=== PATIENT | male | born 1965 | race Caucasian/White ===

== ENCOUNTER 2016-10-06 20:28 | Inpatient (IN) | payer OTHER ==
[~2016-10-06] VITALS: Ht 175.3 cm; Wt 94.0 kg
[2016-10-06] MEDS ORDERED: LIDOCAINE HCL 1% 50 ML VIAL INFIL ONE (20:45)
[2016-10-06] MEDS ORDERED: BUPIVACAINE HCL PF 0.5% 10 ML VIAL INFIL ONE (20:45)
[2016-10-06 20:47] VITALS: BP 147/76; PULSE 99; RESP 18; TEMP 98.1; O2SAT 99
--- NOTE | 2016-10-06 20:48 | PD ---
HPI Chief Complaint: Injury Time Seen by Provider: 20:48 Travel History International Travel<30 days: No Contact w/Intl Traveler<30days: No History of Present Illness HPI 51-year-old male with a history of IV drug use presents to the emergency department for evaluation of laceration of left hand second and third fingers that occurred about 20 minutes prior to arrival. The patient was apparently using a circular saw to cut a door when he accidentally cut his left hand second and third fingers. States that he is unsure how this happened exactly. States that he has pain and limited range of motion in the second and third fingers. Denies any numbness or tingling. Patient denies any medical conditions. Denies taking any prescribed medications. He admits to cocaine use and IV heroin use. States that he last used cocaine yesterday and heroin earlier this month. No other complaints. [facility] Past Medical History Medical History: Denies Significant Hx Social History Alcohol Use: Yes Tobacco Use: Yes Substance Use: Yes Allergies-Medications (Allergen,Severity, Reaction): Coded Allergies: No Known Allergies (Unverified , 10/06/16) Reported Meds & Prescriptions Reported Meds & Active Scripts Active No Active Prescriptions or Reported Medications Review of Systems Except as stated in HPI: all other systems reviewed are Neg Physical Exam Narrative GENERAL: Well-nourished and well-developed male patient in no acute distress who is nontoxic appearing. SKIN: Warm and dry. HEAD: Normocephalic and atraumatic. EYES: No injection, drainage, or hyphema noted. PERRLA. EOMI. ENT: No nasal drainage noted. Oropharynx is clear. NECK: Supple and the trachea is midline. CARDIOVASCULAR: Regular rate and rhythm. RESPIRATORY: Breath sounds are equal bilaterally with no accessory muscle use, wheezing, rhonchi, or crackles. GASTROINTESTINAL: Abdomen is soft, non-tender, and nondistended. EXTREMITY: Right hand dominant. Left hand with complex laceration that wraps around the third finger and is a partial amputation at the DIP joint. Left hand second finger laceration overlying the PIP joint. 2 point discrimination is intact on the second finger. 2 point discrimination is intact on the third finger with the exception of the radial distal aspect. Capillary refill is within normal limits. Decreased range of motion in second and third fingers. Normal opposition of thumb. MUSCULOSKELETAL: No obvious deformities, swelling, cyanosis, or ecchymosis is present throughout the upper and lower extremities. Patient has full range of motion without any signs of neurovascular compromise. NEUROLOGICAL: Awake, alert, and oriented. Normal speech and gait. Cranial nerves are grossly intact. Data Data Last Documented VS Vital Signs Date Time Temp Pulse Resp B/P Pulse Ox O2 Delivery O2 Flow Rate FiO2 10/06/16 20:55 99 18 97 10/06/16 20:47 98.1 147/76 Orders Hand, Complete (Ufm2htn) (10/06/16 20:38) Bupivacaine Pf 0.5% Inj (Marcaine Pf 0.5 (10/06/16 20:45) Lidocaine 1% Inj (50 Ml) (Xylocaine 1% I (10/06/16 20:45) Complete Blood Count With Diff (10/06/16 21:37) Comprehensive Metabolic Panel (10/06/16 21:37) Prothrombin Time / Inr (Pt) (10/06/16 21:37) Act Partial Throm Time (Ptt) (10/06/16 21:37) Iv Access Insert/Monitor (10/06/16 21:37) Ecg Monitoring (10/06/16 21:37) Oximetry (10/06/16 21:37) NPO (10/06/16 21:37) Sodium Chloride 0.9% Flush (Ns Flush) (10/06/16 21:45) Splint Or Brace Apply/Monitor (10/06/16 21:40) Tetanus/Diphtheria Tox Adult (Tetanus/Di (10/06/16 21:45) Cefazolin 2 Gm Premix (Ancef 2 Gm Premix (10/06/16 21:45) Diet Npo (10/07/16 Breakfast) Consent (10/06/16 21:44) Consult Hand Surgery (10/06/16 ) Admit Order (Ed Use Only) (10/06/16 22:00) Labs Laboratory Tests Test 10/06/16 21:44 White Blood Count 9.1 TH/MM3 Red Blood Count 4.16 MIL/MM3 Hemoglobin 12.3 GM/DL Hematocrit 35.0 % Mean Corpuscular Volume 84.2 FL Mean Corpuscular Hemoglobin 29.7 PG Mean Corpuscular Hemoglobin 35.3 % Concent Red Cell Distribution Width 13.1 % Platelet Count 252 TH/MM3 Mean Platelet Volume 8.4 FL Neutrophils (%) (Auto) 50.0 % Lymphocytes (%) (Auto) 31.2 % Monocytes (%) (Auto) 11.4 % Eosinophils (%) (Auto) 6.9 % Basophils (%) (Auto) 0.5 % Neutrophils # (Auto) 4.5 TH/MM3 Lymphocytes # (Auto) 2.8 TH/MM3 Monocytes # (Auto) 1.0 TH/MM3 Eosinophils # (Auto) 0.6 TH/MM3 Basophils # (Auto) 0.0 TH/MM3 CBC Comment DIFF FINAL Differential Comment Prothrombin Time 10.6 SEC Prothromb Time International 1.0 RATIO Ratio Activated Partial 27.3 SEC Thromboplast Time MDM Medical Decision Making Medical Screen Exam Complete: Yes Emergency Medical Condition: Yes Differential Diagnosis Open fracture versus partial amputation versus laceration versus tendon injury Narrative Course 51-year-old male is brought to the emergency department for evaluation of lacerations to left hand second and third fingers secondary to a circular saw. Patient is afebrile, vital signs are stable. There is currently no vascular compromise as the patient has adequate blood flow to both fingers. He has some decreased sensation to the third finger. X-ray shows comminuted fractures involving the distal second proximal phalanx that extends into the proximal interphalangeal joint. There is a triangular fragment measuring 5 x 5 mm with multiple smaller fragments. There is also a comminuted fracture deformity involving the distal third middle phalanx and proximal aspect of the distal phalanx. The distal phalanx is dislocated anteriorly and radially approximately 6 mm. There is extensive soft tissue swelling. A digital block was performed for comfort and to allow for mild irrigation. Patient will be admitted to medicine service with hand surgery consultation. Physician Communication Physician Communication I spoke with Dr. Tran who requests patient have gentle irrigation and be placed in a splint. She also requests patient be admitted to medicine service. I spoke with Dr. Qureshi [facility] who agrees to admit the patient to her service. 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
--- NOTE | 2016-10-06 21:34 | RADRPT ---
EXAM DATE/TIME: 10/06/2016 20:59 [place] COMPARISON: No previous studies available for comparison. INDICATIONS : Pain, laceration left hand, cut with hand saw MEDICAL HISTORY : None. SURGICAL HISTORY : None. ENCOUNTER: Initial ACUITY: 1 day PAIN SCORE: 10/10 LOCATION: Left Hand FINDINGS: AP, lateral and oblique views of the left hand were obtained and demonstrate an oblique comminuted fr acture involving the distal aspect of the second proximal phalanx. This extends into the proximal int erphalangeal joint. There is a triangular fragment measuring approximately 5 x 5 mm. Multiple smaller fragments. There is also a comminuted fracture deformity involving the distal third middle phalanx a nd proximal aspect of the distal phalanx. The distal phalanx is dislocated anteriorly and radially ap proximately 6 mm. There is extensive soft tissue swelling. CONCLUSION: Comminuted fractures involving the second and third digits as described. Martínez Gavin MD on October 06, 2016 at 21:30 Board Certified Radiologist. This report was verified electronically.
[2016-10-06] MEDS ORDERED: ceFAZolin 2 GM PREMIX 50 ML IV ONE (21:45)
[2016-10-06] MEDS ORDERED: SODIUM CHLORIDE 0.9% FLUSH 10 ML FLUSH IV FLUSH PRN ×2 (21:45→22:45)
[2016-10-06] MEDS ORDERED: TETANUS/DIPHTHERIA TOXOID ADULT 0.5 ML VIAL IM ONE (21:45)
[2016-10-06 21:53] LABS: AUTOMATED NEUTROPHIL # 4.5 TH/MM3 (1.8-7.7); BASOPHIL % 0.5 % (0.0-2.0); EOSINOPHIL # 0.6 TH/MM3 (0-0.4); EOSINOPHIL % 6.9 % (0.0-4.0); HEMO FLAGS DIFF FINAL; LYMPH % 31.2 % (9.0-44.0); LYMPHOCYTE # 2.8 TH/MM3 (1.0-4.8); MEAN CELL VOLUME 84.2 FL (80.0-100.0); MEAN CORPUSCULAR HEMOGLOBIN 29.7 PG (27.0-34.0); MEAN CORPUSCULAR HGB CONC 35.3 % (32.0-36.0); MONO % 11.4 % (0.0-8.0); PLATELET COUNT 252 TH/MM3 (150-450); RED BLOOD COUNT 4.16 MIL/MM3 (4.50-5.90); RED CELL DISTRIBUTION WIDTH 13.1 % (11.6-17.2); WHITE BLOOD COUNT 9.1 TH/MM3 (4.0-11.0)
[2016-10-06 22:08] LABS: APTT (PATIENT) 27.3 SEC (24.3-30.1); PROTHROMBIN TIME - PATIENT 10.6 SEC (9.8-11.6)
[2016-10-06 22:20] LABS: ANION GAP 6 MEQ/L (5-15); AST (GOT) 26 U/L (15-37); BICARBONATE 28.8 MEQ/L (21.0-32.0); BLOOD UREA NITROGEN 18 MG/DL (7-18); CHLORIDE 103 MEQ/L (98-107); GLOMERULAR FILTRATION RATE 51 ML/MIN (>89); POTASSIUM 3.5 MEQ/L (3.5-5.1); SODIUM (NA) 138 MEQ/L (136-145)
[2016-10-06 22:21] LABS: ALT (GPT) 32 U/L (12-78)
[2016-10-06 22:24] LABS: ALKALINE PHOSPHATASE 84 U/L (45-117); TOTAL BILIRUBIN ADULT 0.6 MG/DL (0.2-1.0)
[2016-10-06] MEDS ORDERED: NALOXONE HCL 0.4 MG/ML AMP IV PRN (22:45)
[2016-10-06 22:51] VITALS: O2SAT 100
[2016-10-06 23:32] VITALS: BP 140/70; PULSE 98; RESP 18; TEMP 98.1; O2SAT 100
[2016-10-07] VITALS (8 sets, daily range): BP systolic 117–158; BP diastolic 76–98; PULSE 73–113; RESP 18–20; TEMP 96–98.6; O2SAT 98–100
[2016-10-07] MEDS ORDERED: SODIUM CHLORID 0.9% 500 ML IV PRN (00:15)
[2016-10-07] MEDS ORDERED: INSULIN HUMAN REGULAR 1,000 UNITS/10 ML VIAL SQ PRN (00:15)
[2016-10-07] MEDS ORDERED: METOPROLOL TARTRATE 25 MG TAB PO PRN (00:15)
[2016-10-07] MEDS ORDERED: CHLORHEXIDINE GLUCONATE 2 % 1 PACK (2 CLOTHS) TOPICAL PRN (00:15)
[2016-10-07] MEDS ORDERED: POVIDONE IODINE 5% (ANTISEPSIS KIT) 4 APPLICATIONS EACH NARE PRN (00:15)
[2016-10-07] MEDS ORDERED: LACTATED RINGER'S 1000 ML IV PRN (00:15)
[2016-10-07] MEDS: MORPHINE SULFATE 8 MG/ML INJ IV PUSH PRN ×4 (04:52→14:09)
[2016-10-07] MEDS: ceFAZolin 2 GM PREMIX 50 ML IV SCH ×3 (05:11→22:04)
[2016-10-07] MEDS: SODIUM CHLOR 0.9% 1000 ML INJ 1,000 ML IV SCH ×2 (06:01→14:11)
[2016-10-07] MEDS ORDERED: ONDANSETRON HCL 4 MG/2 ML VIAL IVP PRN (06:15)
[2016-10-07] MEDS ORDERED: SENNOSIDES 8.6 MG TAB PO PRN (06:15)
[2016-10-07] MEDS ORDERED: LACTULOSE SYRUP 20 GM/30 ML CUP PO PRN (06:15)
[2016-10-07] MEDS ORDERED: MORPHINE SULFATE 8 MG/ML INJ IV PUSH PRN (06:15)
--- NOTE | 2016-10-07 06:52 | HHI.HP ---
[facility] No Primary Care Physician Admission Diagnosis Left Hand 2nd and 3rd Finger Open Fractures, Partial Amputation Diagnoses: Travel History International Travel<30 Days: No Contact w/Intl Traveler <30 Da: No Traveled to Known Affected Are: No History of Present Illness History from patient ER PA communication, and review of medical records. Patient reported that he was cutting a door with chainsaw and accidentally hit left 2nd and 3rd finger. He states that they are now partially amputated and hanging on with the threat of tissue to the base. He denies any other symptoms such as dizziness/syncopal episodes/chest pain/ palpitations/shortness of breath. He denies any symptoms prior to the. Denies any recent nausea/vomiting/fever/diarrhea/urinary burning or pain on urination. Denies any hematemesis/hematochezia/melena/hematuria. Denies any blood in his stool or in his urine. Review of Systems Except as stated in HPI: all other systems reviewed are Neg Past Family Social History Past Medical History hepatitis c Past Surgical History no surgery ever Allergies: Coded Allergies: No Known Allergies (Unverified , 10/06/16) Family History sister and mom - pancreatitis no family hx of anesthesia problems Social History smokes a pack a day no drinking etoh cocaine every now and then- last dose about 6 days ago uses iv cocaine Physical Exam Vital Signs Vital Signs Date Time Temp Pulse Resp B/P Pulse Ox O2 Delivery O2 Flow Rate FiO2 10/07/16 02:58 88 10/07/16 00:20 98.1 73 20 131/79 98 10/06/16 23:32 98.1 98 18 140/70 100 Room Air 10/06/16 22:51 100 10/06/16 20:55 99 18 97 10/06/16 20:47 98.1 99 18 147/76 99 Physical Exam GENERAL: This is a well-nourished, well-developed patient, in no apparent distress. SKIN: No rashes, ecchymoses or lesions. Cool and dry. HEAD: Atraumatic. Normocephalic. No temporal or scalp tenderness. EYES: No scleral icterus. No injection or drainage. ENT: Nose without bleeding, purulent drainage or septal hematoma. Airway patent. NECK: Trachea midline. No JVD CARDIOVASCULAR: Regular rate and rhythm without murmurs, gallops, or rubs. RESPIRATORY: Clear to auscultation. Breath sounds equal bilaterally. No wheezes , rales, or rhonchi. GASTROINTESTINAL: Abdomen soft, non-tender, nondistended. No guarding. MUSCULOSKELETAL: Extremities without clubbing, cyanosis, or edema. No calf tenderness. Left hand in surgical dressing. NEUROLOGICAL: Awake and alert. Motor and sensory grossly within normal limits. Normal speech. Laboratory Laboratory Tests Test 10/06/16 21:44 White Blood Count 9.1 Red Blood Count 4.16 Hemoglobin 12.3 Hematocrit 35.0 Mean Corpuscular Volume 84.2 Mean Corpuscular Hemoglobin 29.7 Mean Corpuscular Hemoglobin 35.3 Concent Red Cell Distribution Width 13.1 Platelet Count 252 Mean Platelet Volume 8.4 Neutrophils (%) (Auto) 50.0 Lymphocytes (%) (Auto) 31.2 Monocytes (%) (Auto) 11.4 Eosinophils (%) (Auto) 6.9 Basophils (%) (Auto) 0.5 Neutrophils # (Auto) 4.5 Lymphocytes # (Auto) 2.8 Monocytes # (Auto) 1.0 Eosinophils # (Auto) 0.6 Basophils # (Auto) 0.0 CBC Comment DIFF FINAL Differential Comment Prothrombin Time 10.6 Prothromb Time International 1.0 Ratio Activated Partial 27.3 Thromboplast Time Sodium Level 138 Potassium Level 3.5 Chloride Level 103 Carbon Dioxide Level 28.8 Anion Gap 6 Blood Urea Nitrogen 18 Creatinine 1.45 Estimat Glomerular Filtration 51 Rate Random Glucose 141 Calcium Level 8.8 Total Bilirubin 0.6 Aspartate Amino Transf 26 (AST/SGOT) Alanine Aminotransferase 32 (ALT/SGPT) Alkaline Phosphatase 84 Total Protein 7.6 Albumin 3.2 Result Diagram: 10/06/16214310/06/162143 Imaging Last 48 hours Impressions Hand X-Ray 10/06/162037 Signed Impressions: Service Date/Time: Thursday, October 06, 2016 20:59 - CONCLUSION: Comminuted fractures involving the second and third digits as described. Martínez Gavin MD Assessment and Plan Assessment and Plan Impression: Status post accidental injury to left hand second and third digitwith partial amputation IV cocaine abuse Plan: Dr. Tran was consulted from ER. to OR today. Pain control. Perioperative antibiotics with cefazolin. Patient is counseled regarding IV drug abuse. cxr- personally reviewed, no evidence of infiltrates/ pneumothorax/ fluid overload DVT prophylaxiswith SCD. GI prophylaxison pantoprazole. Discussed Condition With patient, ER provider, nursing staff Physician Certification 2 Midnight Certification Type: Admission for Inpatient Services Order for Inpatient Services The services are ordered in accordance with Medicare regulations or non- Medicare payer requirements, as applicable. In the case of services not specified as inpatient-only, they are appropriately provided as inpatient services in accordance with the 2-midnight benchmark. Estimated LOS (days): 2 days is the estimated time the patient will need to remain in the hospital, assuming treatment plan goals are met and no additional complications. Post-Hospital Plan: Home Jaz Qureshi MD Oct 07, 2016 06:52
[2016-10-07] MEDS: SODIUM CHLORIDE 0.9% FLUSH 10 ML FLUSH IV FLUSH SCH ×2 (08:01→20:27)
[2016-10-07] MEDS: DOCUSATE SODIUM 50 MG/SENNA 8.6 MG TAB PO SCH ×2 (08:01→20:27)
[2016-10-07 08:19] LABS: AUTOMATED NEUTROPHIL # 6.1 TH/MM3 (1.8-7.7); BASOPHIL # 0.1 TH/MM3 (0-0.2); BASOPHIL % 0.5 % (0.0-2.0); EOSINOPHIL # 0.6 TH/MM3 (0-0.4); HEMO FLAGS DIFF FINAL; LYMPH % 23.1 % (9.0-44.0); LYMPHOCYTE # 2.3 TH/MM3 (1.0-4.8); MEAN CELL VOLUME 83.6 FL (80.0-100.0); MEAN CORPUSCULAR HEMOGLOBIN 29.7 PG (27.0-34.0); MEAN CORPUSCULAR HGB CONC 35.5 % (32.0-36.0); MONO % 10.3 % (0.0-8.0); NEUT % 60.1 % (16.0-70.0); PLATELET COUNT 249 TH/MM3 (150-450); RED BLOOD COUNT 4.43 MIL/MM3 (4.50-5.90); RED CELL DISTRIBUTION WIDTH 13.7 % (11.6-17.2); WHITE BLOOD COUNT 10.1 TH/MM3 (4.0-11.0)
[2016-10-07 08:47] LABS: POTASSIUM 3.7 MEQ/L (3.5-5.1)
[2016-10-07 08:53] LABS: BICARBONATE 27.6 MEQ/L (21.0-32.0)
[2016-10-07] MEDS ORDERED: LORazepam 2 MG/ML VIAL IV PUSH PRN (09:45)
[2016-10-07] MEDS: REMOVE OLD PATCH T-DERMAL SCH (10:00)
--- NOTE | 2016-10-07 10:00 | HHI.PR ---
Subjective Remarks Follow-up left hand injury and acute kidney injury. Complains of pain involving left hand denies numbness or weakness. Dw RN Objective Vitals Vital Signs Date Time Temp Pulse Resp B/P Pulse Ox O2 Delivery O2 Flow Rate FiO2 10/07/16 09:03 95 10/07/16 08:07 96.6 87 18 117/76 99 10/07/16 04:00 96.0 77 20 152/92 99 10/07/16 02:58 88 10/07/16 00:20 98.1 73 20 131/79 98 10/06/16 23:32 98.1 98 18 140/70 100 Room Air 10/06/16 22:51 100 10/06/16 20:55 99 18 97 10/06/16 20:47 98.1 99 18 147/76 99 I/O 10/06/16 10/06/16 10/06/16 10/07/16 10/07/16 10/07/16 07:00 15:00 23:00 07:00 15:00 23:00 Intake Total 0 ml Balance 0 ml Intake Oral 0 ml # Voids 1 # Bowel Movements 0 Result Diagram: 10/07/16 0743 10/07/16 0743 Imaging Last Impressions Hand X-Ray 10/06/162037 Signed Impressions: Service Date/Time: Thursday, October 06, 2016 20:59 - CONCLUSION: Comminuted fractures involving the second and third digits as described. Martínez Gavin MD Objective Remarks GENERAL: This is a well-nourished, well-developed patient, in no apparent distress. SKIN: No rashes, ecchymoses or lesions. Cool and dry. HEAD: Atraumatic. Normocephalic. No temporal or scalp tenderness. EYES: No scleral icterus. No injection or drainage. ENT: Nose without bleeding, purulent drainage or septal hematoma. Airway patent. NECK: Trachea midline. No JVD CARDIOVASCULAR: Regular rate and rhythm without murmurs, gallops, or rubs. RESPIRATORY: Clear to auscultation. Breath sounds equal bilaterally. No wheezes , rales, or rhonchi. GASTROINTESTINAL: Abdomen soft, non-tender, nondistended. No guarding. MUSCULOSKELETAL: Extremities without clubbing, cyanosis, or edema. No calf tenderness. Left hand in surgical dressing. Intact sensation able to wiggle left second and third fingers NEUROLOGICAL: Awake and alert. Motor and sensory grossly within normal limits. Normal speech. 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 Keep nothing by mouth, wound care, pain management with IV morphine and IV cefazolin. Needs surgical intervention pending hand surgery evaluation Acute kidney injury improved with IV hydration. CK within normal limits. Avoid nephrotoxins IV heroine/cocaine abuse and tobacco use. Patient counseled. Nicotinic patch. 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
[2016-10-07] MEDS: NICOTINE 21 MG/24 HR PATCH T-DERMAL SCH (11:13)
[2016-10-07] MEDS ORDERED: LACTATED RINGER'S 1000 ML INJ 1,000 ML IV ONE (13:31)
[2016-10-07] MEDS ORDERED: PROPOFOL 200 MG/20 ML AMP IV ONE (13:31)
[2016-10-07] MEDS ORDERED: ONDANSETRON HCL 4 MG/2 ML VIAL IV PUSH ONE (13:32)
--- NOTE | 2016-10-07 16:48 | EKG ---
Date Performed: 10/07/2016 Time Performed: 08:00:52 PTAGE: 51 years EKG: Sinus rhythm BORDERLINE LEFT AXIS DEVIATION BORDERLINE ECG NO PREVIOUS TRACING DOCTOR: Harris De La O Interpretating Date/Time 10/07/2016 16:47:10
[2016-10-07] MEDS: MORPHINE SULFATE 4 MG/ML INJ IV PUSH PRN (17:17)
[2016-10-07] MEDS ORDERED: MORPHINE SULFATE 4 MG/ML INJ IV PUSH PRN (18:15)
[2016-10-07] MEDS ORDERED: LIDOCAINE HCL 1% 50 ML VIAL ONE (18:34)
[2016-10-07] MEDS ORDERED: BUPIVACAINE HCL PF 0.5% 30 ML VIAL ONE (18:34)
[2016-10-07] MEDS ORDERED: NEOMYCIN/POLYMYXIN 1 ML G.U. IRRIGANT TOPICAL ONE (21:17)
[2016-10-07] MEDS ORDERED: MIDAZOLAM HCL 2 MG/2 ML VIAL ONE (22:05)
[2016-10-07] MEDS ORDERED: fentaNYL CITRATE 250 MCG/5 ML AMP ONE (22:05)
[2016-10-07] MEDS ORDERED: LIDOCAINE HCL 2% 50 ML VIAL ONE (22:45)
[2016-10-07] MEDS ORDERED: LIDOCAINE HCL 2% 50 ML VIAL INFIL ONE (22:55)
[2016-10-07] MEDS ORDERED: ACETAMINOPHEN 1000 MG/100 ML VIAL IV ONE (23:56)
[2016-10-08] VITALS (9 sets, daily range): BP systolic 129–179; BP diastolic 80–119; PULSE 87–109; RESP 17–19; TEMP 96.6–98.3; O2SAT 97–100
[2016-10-08] MEDS ORDERED: MORPHINE SULFATE 4 MG/ML INJ ONE (00:26)
[2016-10-08] MEDS ORDERED: DO NOT ADM ANY ANTICOAGULANT DRUGS PRN (00:45)
--- NOTE | 2016-10-08 00:59 | PD.ORT.PN ---
Subjective Subjective Remarks Patient reports moderate pain left hand. Denies paresthesias. Objective Vitals Vital Signs Date Time Temp Pulse Resp B/P Pulse Ox O2 Delivery O2 Flow Rate FiO2 10/08/16 00:30 109 15 149/95 100 Nasal Cannula 3 10/08/16 00:22 100 10 150/97 100 Simple Mask 8 10/08/16 00:19 97.6 101 10 157/99 100 Simple Mask 8 10/07/16 15:35 96.2 74 19 158/98 100 10/07/16 11:15 96.7 76 18 142/93 98 10/07/16 09:03 95 10/07/16 08:07 96.6 87 18 117/76 99 10/07/16 04:00 96.0 77 20 152/92 99 10/07/16 02:58 88 I/O 10/07/16 10/07/16 10/07/16 10/08/16 10/08/16 10/08/16 07:00 15:00 23:00 07:00 15:00 23:00 Intake Total 0 ml 0 ml 1100 ml Output Total 20 ml Balance 0 ml 0 ml 1080 ml Intake Oral 0 ml 0 ml Other 1100 ml Output Estimated Blood Loss 20 ml Other 0 ml # Voids 1 3 # Bowel Movements 0 0 Result Diagram: 10/07/16 0743 10/07/16 0743 Objective Remarks Splint in place, <2 sec capillary refill to index and middle fingers, able to wiggle finger tips, sensation present index and middle fingers Assessment & Plan Assessment and Plan 51yM POD0 s/p I&D open fractures left index & middle fingers, extensor tendon repairs index & middle fingers, flexor tendon repair left middle finger, open reduction and pinning left index PIP joint and left middle finger DIP joint with allograft bone graft s/p severe skill saw injury in patient with pmhx significant for cocaine use -Elevate left hand, Nonweightbearing left hand -ASA 81mg daily -DO NOT remove dressing -Okay to discharge per hand surgery, followup in office in 1 week, Ab and pain meds per primary team Hanna Tran MD Oct 08, 2016 00:59
[2016-10-08] MEDS: MORPHINE SULFATE 4 MG/ML INJ IV PUSH PRN ×5 (01:23→22:25)
[2016-10-08] MEDS: ACETAMINOPHEN 325 MG TAB PO PRN ×2 (01:40→18:19)
[2016-10-08] MEDS: SODIUM CHLOR 0.9% 1000 ML INJ 1,000 ML IV SCH ×3 (01:41→22:23)
[2016-10-08] MEDS ORDERED: HYDROmorphone HCL PF 1 MG/ML VIAL IV PUSH ONE (02:15)
[2016-10-08] MEDS: ceFAZolin 2 GM PREMIX 50 ML IV SCH ×3 (05:22→22:23)
[2016-10-08 08:05] LABS: AUTOMATED NEUTROPHIL # 6.8 TH/MM3 (1.8-7.7); BASOPHIL % 0.3 % (0.0-2.0); EOSINOPHIL # 0.4 TH/MM3 (0-0.4); EOSINOPHIL % 4.1 % (0.0-4.0); HEMATOCRIT 37.2 % (39.0-51.0); HEMO FLAGS DIFF FINAL; LYMPH % 18.2 % (9.0-44.0); LYMPHOCYTE # 1.8 TH/MM3 (1.0-4.8); MEAN CELL VOLUME 84.1 FL (80.0-100.0); MEAN CORPUSCULAR HEMOGLOBIN 28.8 PG (27.0-34.0); MEAN CORPUSCULAR HGB CONC 34.3 % (32.0-36.0); MONO % 9.5 % (0.0-8.0); NEUT % 67.9 % (16.0-70.0); PLATELET COUNT 226 TH/MM3 (150-450); RED BLOOD COUNT 4.42 MIL/MM3 (4.50-5.90); RED CELL DISTRIBUTION WIDTH 13.5 % (11.6-17.2); WHITE BLOOD COUNT 10.1 TH/MM3 (4.0-11.0)
[2016-10-08 08:24] LABS: BICARBONATE 32.1 MEQ/L (21.0-32.0); POTASSIUM 3.6 MEQ/L (3.5-5.1)
[2016-10-08] MEDS: DOCUSATE SODIUM 50 MG/SENNA 8.6 MG TAB PO SCH ×2 (09:58→20:56)
[2016-10-08] MEDS: REMOVE OLD PATCH T-DERMAL SCH (09:58)
[2016-10-08] MEDS: NICOTINE 21 MG/24 HR PATCH T-DERMAL SCH (09:58)
[2016-10-08] MEDS: SODIUM CHLORIDE 0.9% FLUSH 10 ML FLUSH IV FLUSH SCH ×2 (09:59→20:57)
--- NOTE | 2016-10-08 10:41 | HHI.PR ---
Subjective Remarks Follow-up hand injury and acute kidney injury. He is still okay wants to go home but still on IV morphine. Agrees to be started on tramadol aware of possible side effects including seizures. Discussed with RN, patient can be discharged home if oral medications effective in controlling pain. Objective Vitals Vital Signs Date Time Temp Pulse Resp B/P Pulse Ox O2 Delivery O2 Flow Rate FiO2 10/08/16 09:18 97 Nasal Cannula 3.00 10/08/16 07:38 97.3 99 18 130/80 98 10/08/16 03:28 143/93 10/08/16 03:25 99 149/93 10/08/16 02:00 97.1 109 19 179/119 100 10/08/16 01:00 98.3 100 13 159/96 100 Nasal Cannula 2 10/08/16 00:45 96 13 156/99 100 Nasal Cannula 3 10/08/16 00:30 109 15 149/95 100 Nasal Cannula 3 10/08/16 00:22 100 10 150/97 100 Simple Mask 8 10/08/16 00:19 97.6 101 10 157/99 100 Simple Mask 8 10/07/16 19:30 98.6 113 18 136/89 100 10/07/16 15:35 96.2 74 19 158/98 100 10/07/16 11:15 96.7 76 18 142/93 98 I/O 10/07/16 10/07/16 10/07/16 10/08/16 10/08/16 10/08/16 07:00 15:00 23:00 07:00 15:00 23:00 Intake Total 0 ml 0 ml 0 ml 2180 ml Output Total 20 ml Balance 0 ml 0 ml 0 ml 2160 ml Intake Oral 0 ml 0 ml 0 ml 480 ml IV Total 600 ml Other 1100 ml Output Urine Total 0 ml Estimated Blood Loss 20 ml Other 0 ml # Voids 1 3 1 0 # Bowel Movements 0 0 0 0 Result Diagram: 10/08/1671310/08/16713 Imaging Last Impressions Hand X-Ray 10/06/162037 Signed Impressions: Service Date/Time: Thursday, October 06, 2016 20:59 - CONCLUSION: Comminuted fractures involving the second and third digits as described. Martínez Gavin MD Objective Remarks GENERAL: This is a well-nourished, well-developed patient, in no apparent distress. SKIN: No rashes, ecchymoses or lesions. Cool and dry. HEAD: Atraumatic. Normocephalic. No temporal or scalp tenderness. EYES: No scleral icterus. No injection or drainage. ENT: Nose without bleeding, purulent drainage or septal hematoma. Airway patent. NECK: Trachea midline. No JVD CARDIOVASCULAR: Regular rate and rhythm without murmurs, gallops, or rubs. RESPIRATORY: Clear to auscultation. Breath sounds equal bilaterally. No wheezes , rales, or rhonchi. GASTROINTESTINAL: Abdomen soft, non-tender, nondistended. No guarding. MUSCULOSKELETAL: Extremities without clubbing, cyanosis, or edema. No calf tenderness. Left hand in surgical dressing. Intact sensation able to wiggle left second and third fingers NEUROLOGICAL: Awake and alert. Motor and sensory grossly within normal limits. Normal speech. 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 Continue postoperative care with IV antibiotic, wound care and pain management. We will start by mouth pain medications (tramadol aware of possible side effects) and continue IV morphine for breakthrough pain. Patient will be discharged if pain management with tramadol. We'll try to avoid narcotics if possible secondary to history of cocaine abuse. NSAIDs not an option because of kidney injury.. Patient has been cleared for discharge by hand surgery Acute versus chronic kidney injury improving with IV hydration. CK within normal limits. Continue IV hydrations. Avoid nephrotoxins IV heroine/cocaine abuse and tobacco use. Patient counseled. Nicotinic patch. Low risk for DVT Discharge Planning Discharge to home when pain controlled with by mouth medications. 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
[2016-10-08] MEDS ORDERED: CEFU1TAB20 PO (10:43)
--- NOTE | 2016-10-08 10:44 | HHI.DCPOC ---
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 Avoid second hand smoke Call the 24-hour hour crisis hotline for domestic abuse at Evangelist Saul MD Oct 08, 2016 10:44
[2016-10-08] MEDS ORDERED: traMADol HCL 50 MG TAB PO PRN (13:00)
[2016-10-08] MEDS: traMADol HCL 50 MG TAB PO PRN ×2 (13:40→20:57)
[2016-10-08] MEDS ORDERED: ULTR50TA5 PO (13:55)
[2016-10-08 21:28] LABS: HEMOGLOBIN A1a 0.9 %; HEMOGLOBIN A1b 1.5 %; HEMOGLOBIN Ao 86.3 %; HEMOGLOBIN LA1C 2.1 %; HEMOGLOBIN P3 3.5 %
--- NOTE | 2016-10-08 23:31 | MB ---
cc: ANNAMARIA ALEX DATE OF CONSULTATION 10/07/2016 REASON FOR CONSULTATION Table saw injury left hand, specifically left index and middle fingers. HISTORY OF PRESENT ILLNESS Eliecer Staley is a 51-year-old right-hand dominant male who states that he works as a [employer] who was using some sort of a saw, either a skill saw or circular saw to cut a piece of wood when he slipped and injured his left index and middle fingers. The patient denies any prior injuries to the left hand. Denies any significant paresthesias in the fingers. Reports significant pain over the fingers. The patient does admit to using cocaine and IV heroin. PAST MEDICAL HISTORY Denies. ALLERGIES NO KNOWN DRUG ALLERGIES. PHYSICAL EXAMINATION VITAL SIGNS: Stable. DIRECTED EXAMINATION: Exam of the left hand shows a laceration from the ulnar aspect of the middle finger at the level of the DIP joint with near amputation of the left middle finger through the DIP joint which then extends radially. The patient also has a significant spiral laceration extending from the left index finger from radial to ulnar with lacerated extensor tendon exposed in the wound with open joint and significant injury to the left index finger. The patient has less than 2-second capillary refill to the index finger, approximately 3-second capillary refill to the middle finger. Exam was somewhat limited. He has extensor lag of both the middle and index fingers. He does have sensation present on the radial and ulnar sides of the index and middle finger. Full range of motion deferred. IMAGING STUDIES X-rays of the left hand shows comminuted fracture of the left middle finger, distal phalanx with significant dislocation of the distal phalanx anteriorly and radially. X-ray of the left index finger shows an oblique comminuted fracture involving the distal aspect of the second proximal phalanx. ASSESSMENT/PLAN A 51-year-old right-hand dominant male status post a saw injury to the left hand, specifically the left index and middle fingers. Past medical history significant for cocaine and heroin use. The patient ate just prior to presentation with a history of recent cocaine use. Plan will be for surgery as soon as he is cleared for possible irrigation, debridement, possible repair of any injured structures including tendon, nerve, closed versus open pinning, possible open reduction, internal fixation, possible revision amputation surgery is indicated. The patient elects to proceed. He understands he is at high risk for long-term dysfunction of the hand including paresthesias, stiffness, pain, nonunion, malunion, amputation and need for additional surgery. MD VALDO Tobias /11:03 PM /11:25 PM ERIN
[2016-10-09 00:55] VITALS: BP 110/74; PULSE 80; RESP 16; TEMP 99.8; O2SAT 98
[2016-10-09] MEDS: MORPHINE SULFATE 4 MG/ML INJ IV PUSH PRN (03:09)
[2016-10-09 04:50] VITALS: BP 122/81; PULSE 78; RESP 16; TEMP 97.8; O2SAT 98
[2016-10-09] MEDS: ceFAZolin 2 GM PREMIX 50 ML IV SCH ×2 (05:26→13:07)
[2016-10-09 06:38] LABS: BICARBONATE 31.1 MEQ/L (21.0-32.0); MAGNESIUM 2.1 MG/DL (1.5-2.5); POTASSIUM 3.9 MEQ/L (3.5-5.1)
[2016-10-09 08:00] VITALS: BP 119/78; PULSE 79; RESP 20; TEMP 96.8; O2SAT 98
[2016-10-09] MEDS: SODIUM CHLOR 0.9% 1000 ML INJ 1,000 ML IV SCH (08:36)
[2016-10-09] MEDS: SODIUM CHLORIDE 0.9% FLUSH 10 ML FLUSH IV FLUSH SCH (08:36)
[2016-10-09 08:37] VITALS: PULSE 70
[2016-10-09] MEDS: DOCUSATE SODIUM 50 MG/SENNA 8.6 MG TAB PO SCH (08:37)
[2016-10-09] MEDS: traMADol HCL 50 MG TAB PO PRN (08:37)
[2016-10-09] MEDS: NICOTINE 21 MG/24 HR PATCH T-DERMAL SCH (08:38)
[2016-10-09] MEDS: REMOVE OLD PATCH T-DERMAL SCH (08:38)
[2016-10-09 09:58] VITALS: O2SAT 98
--- NOTE | 2016-10-09 10:23 | HHI.PR ---
Subjective Remarks Follow-up hand injury and acute kidney injury. Discharge held yesterday as pain was not controlled with oral medications. He states tramadol not working. He did tolerate Dilaudid. Patient counseled regarding narcotic use. Discussed with RN Objective Vitals Vital Signs Date Time Temp Pulse Resp B/P Pulse Ox O2 Delivery O2 Flow Rate FiO2 10/09/16 09:58 98 21 10/09/16 08:00 96.8 79 20 119/78 98 10/09/16 04:50 97.8 78 16 122/81 98 10/09/16 00:55 99.8 80 16 110/74 98 10/08/16 20:30 98.3 92 17 140/82 97 10/08/16 20:00 87 10/08/16 15:18 96.7 90 18 129/80 98 10/08/16 11:47 96.6 101 19 134/85 98 I/O 10/08/16 10/08/16 10/08/16 10/09/16 10/09/16 10/09/16 07:00 15:00 23:00 07:00 15:00 23:00 Intake Total 2180 ml 960 ml 1356 ml 1009 ml Output Total 20 ml 400 ml 950 ml 1000 ml 500 ml Balance 2160 ml 560 ml 406 ml 9 ml -500 ml Intake Oral 480 ml 960 ml 480 ml 240 ml IV Total 600 ml 876 ml 769 ml Other 1100 ml Output Urine Total 0 ml 400 ml 950 ml 1000 ml 500 ml Estimated Blood Loss 20 ml Other 0 ml # Voids 0 2 # Bowel Movements 0 0 0 0 Result Diagram: 10/08/16 0714 10/09/16 0532 Imaging Last Impressions Hand X-Ray 10/06/162037 Signed Impressions: Service Date/Time: Thursday, October 06, 2016 20:59 - CONCLUSION: Comminuted fractures involving the second and third digits as described. Martínez Gavin MD Objective Remarks GENERAL: This is a well-nourished, well-developed patient, in no apparent distress. SKIN: No rashes, ecchymoses or lesions. Cool and dry. HEAD: Atraumatic. Normocephalic. No temporal or scalp tenderness. EYES: No scleral icterus. No injection or drainage. ENT: Nose without bleeding, purulent drainage or septal hematoma. Airway patent. NECK: Trachea midline. No JVD CARDIOVASCULAR: Regular rate and rhythm without murmurs, gallops, or rubs. RESPIRATORY: Clear to auscultation. Breath sounds equal bilaterally. No wheezes , rales, or rhonchi. GASTROINTESTINAL: Abdomen soft, non-tender, nondistended. No guarding. MUSCULOSKELETAL: Extremities without clubbing, cyanosis, or edema. No calf tenderness. Left hand in surgical dressing. Intact sensation able to wiggle left second and third fingers NEUROLOGICAL: Awake and alert. Motor and sensory grossly within normal limits. Normal speech. 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 Continue postoperative care with IV cefazolin, wound care and pain management. We will continue mouth pain medications switch tramadol to Dilaudid aware of possible side effects and IV morphine for breakthrough pain. Patient will be discharged if pain managed by Dilaudid. NSAIDs not an option because of kidney injury. Patient has been cleared for discharge by hand surgery Acute versus chronic kidney injury improving with IV hydration. CK within normal limits. Improving discontinue IV hydration. Avoid nephrotoxins IV heroine/cocaine abuse and tobacco use. Patient counseled. Nicotinic patch. Low risk for DVT Discharge Planning Discharge to home when pain controlled with by mouth medications. 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
[2016-10-09] MEDS ORDERED: HYDROmorphone HCL 2 MG TAB PO PRN (11:00)
[2016-10-09] MEDS ORDERED: DILA2TAB2 PO (11:00)
--- NOTE | 2016-10-09 11:01 | HHI.DS ---
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 Patient reported that he was cutting a door with chainsaw and accidentally hit left 2nd and 3rd finger. He states that they are now partially amputated and hanging on with the threat of tissue to the base. He denies any other symptoms such as dizziness/syncopal episodes/chest pain/ palpitations/shortness of breath. He denies any symptoms prior to the. Denies any recent nausea/vomiting/fever/diarrhea/urinary burning or pain on urination. Denies any hematemesis/hematochezia/melena/hematuria. Denies any blood in his stool or in his urine. CBC/BMP: 10/08/16 0714 10/09/16 0532 Significant Findings Laboratory Tests Test 10/06/16 10/07/16 10/08/16 10/09/16 21:44 07:43 07:14 05:32 Red Blood Count 4.16 MIL/MM3 4.43 MIL/MM3 4.42 MIL/MM3 (4.50-5.90) (4.50-5.90) (4.50-5.90) Hemoglobin 12.3 GM/DL 12.7 GM/DL (13.0-17.0) (13.0-17.0) Hematocrit 35.0 % 37.0 % 37.2 % (39.0-51.0) (39.0-51.0) (39.0-51.0) Monocytes (%) (Auto) 11.4 % 10.3 % 9.5 % (0.0-8.0) (0.0-8.0) (0.0-8.0) Eosinophils (%) (Auto) 6.9 % (0.0-4.0) 6.0 % (0.0-4.0) 4.1 % (0.0-4.0) Monocytes # (Auto) 1.0 TH/MM3 1.0 TH/MM3 1.0 TH/MM3 (0-0.9) (0-0.9) (0-0.9) Eosinophils # (Auto) 0.6 TH/MM3 0.6 TH/MM3 (0-0.4) (0-0.4) Creatinine 1.45 MG/DL 1.34 MG/DL (0.60-1.30) (0.60-1.30) Estimat Glomerular Filtration 51 ML/MIN (>89) 64 ML/MIN (>89) 56 ML/MIN (>89) 73 ML/MIN (>89) Rate Random Glucose 141 MG/DL 130 MG/DL (74-106) (74-106) Albumin 3.2 GM/DL (3.4-5.0) Sodium Level 135 MEQ/L (136-145) Carbon Dioxide Level 32.1 MEQ/L (21.0-32.0) Anion Gap 4 MEQ/L (5-15) 4 MEQ/L (5-15) Calcium Level 8.3 MG/DL (8.5-10.1) Imaging Last Impressions Hand X-Ray 10/06/162037 Signed Impressions: Service Date/Time: Thursday, October 06, 2016 20:59 - CONCLUSION: Comminuted fractures involving the second and third digits as described. Martínez Gavin MD PE at Discharge GENERAL: This is a well-nourished, well-developed patient, in no apparent distress. SKIN: No rashes, ecchymoses or lesions. Cool and dry. HEAD: Atraumatic. Normocephalic. No temporal or scalp tenderness. EYES: No scleral icterus. No injection or drainage. ENT: Nose without bleeding, purulent drainage or septal hematoma. Airway patent. NECK: Trachea midline. No JVD CARDIOVASCULAR: Regular rate and rhythm without murmurs, gallops, or rubs. RESPIRATORY: Clear to auscultation. Breath sounds equal bilaterally. No wheezes , rales, or rhonchi. GASTROINTESTINAL: Abdomen soft, non-tender, nondistended. No guarding. MUSCULOSKELETAL: Extremities without clubbing, cyanosis, or edema. No calf tenderness. Left hand in surgical dressing. Intact sensation able to wiggle left second and third fingers NEUROLOGICAL: Awake and alert. Motor and sensory grossly within normal limits. Normal speech. Hospital Course Accidental injury to left hand second and third digitwith partial amputation status post repair. Continue postoperative care with IV cefazolin, wound care and pain management. We will continue mouth pain medications switch tramadol to Dilaudid aware of possible side effects and IV morphine for breakthrough pain. Patient will be discharged if pain managed by Dilaudid. NSAIDs not an option because of kidney injury. Patient has been cleared for discharge by hand surgery Acute versus chronic kidney injury improving with IV hydration. CK within normal limits. Improving discontinue IV hydration. Avoid nephrotoxins IV heroine/cocaine abuse and tobacco use. Patient counseled. Nicotinic patch. Low risk for DVT Pt Condition on Discharge: Stable Discharge Disposition: Discharge Home Discharge Time: > 30 minutes Discharge Instructions DIET: Follow Instructions for: As Tolerated, No Restrictions Activities you can perform: Regular-No Restrictions Activities to Avoid: Driving Other Activity Instructions: TAMELA STEWART Follow up Referrals: Hand Surgery - 1 Week PCP Follow-up - 1 Week New Medications: Cefuroxime (Cefuroxime) 500 Mg Tab 500 MG PO BID Infection #8 Ref 0 TAB Hydromorphone (Dilaudid) 2 Mg Tab 1 MG PO Q6H Take half of the pill every 6 hours as needed for pain PRN Pain Management #14 Ref 0 TAB Additional Information I spent 35 minutes [id number] with the patient or on the arias discussing the patient's disposition, prognosis, and plan of care with patient's caregivers. Over half the time spent was devoted to counseling the patient regarding placement in coordinating care with caregivers and case management. Evangelist Saul MD Oct 09, 2016 11:01
[2016-10-09 12:00] VITALS: BP 139/93; PULSE 95; RESP 20; TEMP 96.5; O2SAT 96
--- NOTE | 2016-10-10 16:08 | MP ---
cc: HANNA TRAN DATE OF SURGERY: 10/07/2016 PREOPERATIVE DIAGNOSIS 1. Table saw injury left index and middle finger with significant injury to the left index finger at the level of the PIP joint with likely extensor tendon laceration and open fracture of the left index finger middle phalanx. 2. Open fracture dislocation left middle finger DIP joint with likely extensor and flexor tendon lacerations. POSTOPERATIVE DIAGNOSIS 1. Table saw injury left index and middle finger with significant injury to the left index finger at the level of the PIP joint with extensor tendon laceration and open fracture of the left index finger middle phalanx. 2. Open fracture dislocation left middle finger DIP joint with extensor and flexor tendon lacerations. PROCEDURE 1. Irrigation and debridement open fracture and dislocation left index finger including skin, subcutaneous tissue, muscle and bone 2. Irrigation and debridement open fracture and dislocation left middle finger including skin, subcutaneous tissue, muscle and bone 3. Extensor tendon repair of left index finger. 4. Open reduction and pinning left index finger middle phalanx at the level of the proximal interphalangeal joint with allograft. 5. Extensor tendon repair left middle finger. 6. Flexor tendon repair, FDP (flexor digitorum profundus) left middle finger. 7. Open reduction and pinning fracture-dislocation left middle finger distal interphalangeal joint with placement of bone allograft. 8. Interpretation of x-rays left hand by the surgeon throughout the procedure. SURGEON Dr. Hanna Tran. ANESTHESIA General and local. TOURNIQUET TIME Tourniquet was inflated at 2117 and deflated at 2237. A total of 1 hour and 20 minutes. IMPLANTS Two 0.045 K-wires and two 0.035 K-wires which are temporary. INDICATIONS FOR PROCEDURE Eliecer Staley is a 51-year-old right-hand dominant male who sustained a significant saw injury to his left index and middle fingers with past medical history significant for IV drug use including cocaine and heroin. Treatment options were discussed with the patient and I recommended surgical intervention as soon as available including irrigation, debridement of the open fractures and dislocations, repair of any injured structures including tendon, nerve, artery, possible pinning, possible open reduction, internal fixation of both fingers at the level of the fracture, surgery is indicated and he elected to proceed. Risks were explained to include but not limited to wound complications, infection, nonunion, malunion, stiffness, pain, paresthesias, amputation long-term dysfunction of the hand, need for additional surgeries, PE, DVT, and he elected to proceed. DESCRIPTION OF PROCEDURE The patient was identified in the preoperative holding area and the correct extremity was marked. The patient was taken to the operating room where anesthesia was induced. The left upper extremity was prepped and draped in normal sterile fashion. A Doppler was utilized. The patient had good dopplerable signal over the left index finger. At the beginning of the procedure the patient had dopplerable signal to the left middle finger at the radial border but not the ulnar border. The wounds were then irrigated with 6 liters of antibiotic saline including skin, subcutaneous tissue, muscle and bone with a combination of Rongeur and curette. Attention was first turned to the left middle finger. Under fluoroscopy the open fracture dislocation was reduced. Next, a 4-0 Ethibond was used to repair the flexor digitorum profundus tendon to the left middle finger. Then one 0.045 K-wire was used to open reduce and pin the left middle finger distal interphalangeal joint. This held the joint in good alignment, was confirmed under x-ray in both AP and lateral planes and a second 0.045 K-wire was used to stabilize the reduction. There was some bone loss due to the saw injury. The decision was made to place some corticocancellous allograft chips into the area. This was again confirmed under fluoroscopy. The pins were cut and bent outside of the skin and the extensor tendon was repaired also with the Ethibond and the skin was closed with Chromic. Following this the patient had improved dopplerable signal with good dopplerable signal in both the radial and ulnar sides of the left middle finger with approximately 3-second capillary refill. Attention was then turned to the index finger. There was an open fracture dislocation of the left index finger proximal interphalangeal joint with a large displaced piece ulnarly. This was pinned into place using two 0.035 K- wires. This was again confirmed under fluoroscopy. Again, there was an area of bone loss approximately 1/2 cm and corticocancellous allograft was used to place in the void. The patient had a concentric PIP joint at this point with no subluxation. Decision was made then to repair the extensor tendon which had significant shredding damage with Ethibond, then there was a complex laceration of the left index finger which was curvilinear in nature which was closed loosely with Chromic. Digital blocks were performed of the fingers using 2% lidocaine with no epinephrine and the patient was placed into a dorsal blocking splint after the pins were cut outside of the skin and Heidy balls were placed. The patient will remain in the hospital. He will take aspirin. He will remain on antibiotics. He will elevate the hand and be non-weightbearing on the hand for pain control. I would like to see him in one week in the office and begin occupational therapy with a custom splint. The plan will be to leave the K-wires in place for 4 to 8 weeks. I will discuss with the patient, he is at high-risk for stiffness, pain, paresthesias, need for additional surgeries, nonunion and malunion. MD SHAYY Tobias/TLL /11:09 PM /3:41 PM [id number]
== END 2016-10-09 14:44 | disposition home or self-care (01) | DRG 513 ==
LOC: NEPE 20:28 → NEDA 22:03 → N06B 10-07 00:01
PROVIDERS: ADMIT Internal Medicine; ATTEND Internal Medicine
PROC: 0PBV0ZZ Excision of Left Finger Phalanx, Open Approach (ICD-10-PCS; principal; 2016-10-08)
PROC: 0LQ80ZZ Repair Left Hand Tendon, Open Approach (ICD-10-PCS; 2016-10-08)
PROC: 0PBV0ZZ Excision of Left Finger Phalanx, Open Approach (ICD-10-PCS; 2016-10-08)
PROC: 0PSV04Z Reposition Left Finger Phalanx with Internal Fixation Device, Open Approach (ICD-10-PCS; 2016-10-08)
PROC: 0LQ80ZZ Repair Left Hand Tendon, Open Approach (ICD-10-PCS; 2016-10-08)
PROC: 0LQ80ZZ Repair Left Hand Tendon, Open Approach (ICD-10-PCS; 2016-10-08)
PROC: 0PSV04Z Reposition Left Finger Phalanx with Internal Fixation Device, Open Approach (ICD-10-PCS; 2016-10-08)
DX: S62.621B Displaced fracture of middle phalanx of left index finger, initial encounter for open fracture (principal); N17.9 Acute kidney failure, unspecified; S56.124A Laceration of flexor muscle, fascia and tendon of left middle finger at forearm level, initial encounter; S56.422A Laceration of extensor muscle, fascia and tendon of left index finger at forearm level, initial encounter; S56.424A Laceration of extensor muscle, fascia and tendon of left middle finger at forearm level, initial encounter; S62.603B Fracture of unspecified phalanx of left middle finger, initial encounter for open fracture; W31.2XXA Contact with powered woodworking and forming machines, initial encounter; Y92.9 Unspecified place or not applicable; F11.90 Opioid use, unspecified, uncomplicated; F14.90 Cocaine use, unspecified, uncomplicated; F17.210 Nicotine dependence, cigarettes, uncomplicated; F19.10 Other psychoactive substance abuse, uncomplicated
CPT/HCPCS: 64450; 73130; 76000; 80048; 80053; 82550; 83036; 83735; 85025; 85610; 85730; 90714; 93005; 94620; J0131; J0690; J1170; J2250; J2270; J2405; J3010; J7030; J7120